=== PATIENT | male | born 1975 | race Caucasian/White ===

== ENCOUNTER 2018-02-16 03:10 | Emergency (ER) | payer MEDICARE, OTHER, MEDICAID ==
[2018-02-16 03:21] VITALS: BP 137/109
--- NOTE | 2018-02-16 03:28 | ER Document Report ---
ED General - General Chief Complaint: Chest Pain Stated Complaint: CHEST PAIN Time Seen by Provider: 02/16/18 03:25 Notes: Patient is a 42-year-old male who is brought in by EMS for chest pain. He has previous history of [place]. Since patient got to the room and had his EKG he told the nurse that his EKG looks fine and that he was leaving. He immediately pulled out his IV. I ran into the room to see the patient and informed the patient that leaving would be a bad idea and that I would at least like to talk to him and evaluate him and do further workup to make sure he is not having NJ. Patient refuses any evaluation from me and refuses any workup. I informed the patient that an EKG alone does not rule out a heart attack and that he could still potentially be having a heart attack and that he needs further workup. I informed him that if he is having a heart attack then he will go home and likely . Patient says that he knows for sure he is not having a heart attack and that he wants to go home because he has an autistic son at home that he needs to care for. I informed patient that I cannot hold him against his will however I again strongly recommend that he stays as he could potentially be having a heart attack and could . I informed him that even though he is deciding to leave that he is more than welcome to come back to the ER anytime as we want what is best for him and want to treat him. Patient left immediately. Further history is not obtainable as the patient did not want to give any further history or allow a full examination. TRAVEL OUTSIDE OF THE [place] IN LAST 30 DAYS: No - Related Data Allergies/Adverse Reactions: No Known Drug Allergies Allergy (Verified 02/16/18 03:21) Past Medical History - Social History Smoking Status: Unknown if Ever Smoked Frequency of alcohol use: unknown Drug Abuse: Other - unknown Family History: Other - unknown Review of Systems - Review of Systems -: Yes ROS unobtainable due to patient's medical condition - Patient will not give review of systems. Physical Exam - Vital signs Vitals: Temp 97.8 F 02/16/18 03:13 - Notes Notes: Patient refused physical exam. Course - Re-evaluation Re-evalutation: 02/16/18 03:36 Patient is awake and alert and talking normally without slurring of speech. He is walking around the room with normal coordination. He is not showing signs of inebriation. There is nothing on my interaction with him that would suggest that he lacks capacity where I could hold him against his will. Patient AGAINST MEDICAL ADVICE despite the repeatedly requesting that he is stayed for continue workup. Dictation of this chart was performed using voice recognition software; therefore, there may be some unintended grammatical errors. - Vital Signs Vital signs: Temp Pulse Resp BP Pulse Ox 97.8 F 12 137/109 H 99 02/16/18 03:13 02/16/18 03:16 02/16/18 03:16 02/16/18 03:16 Discharge - Discharge Clinical Impression: Chest pain Qualifiers: Chest pain type: unspecified Qualified Code(s): R07.9 - Chest pain, unspecified Disposition: AGAINST MEDICAL ADVICE Additional Instructions: At this time there is no way to show that you are not having a heart attack being that you are refusing work up. There is no way to determine whether oryou will have a bad outcome within the next 24 hours and this is why we prefer you to stay. We respect your decision to leave and understand that you do have prior priorities. Even though you are leaving we are not upset or mad. We just want what is best for you and therefore we encourage you to come back anytime so we can treat you and do a complete workup. There is a chance that you could tonight if you are indeed having a heart attack that we cannot see without doing further workup. Referrals: LOCALMD,NO [Primary Care Provider] - Follow up as needed
--- NOTE | 2018-02-16 10:12 | EKG REPORT ---
SEVERITY:- ABNORMAL ECG - SINUS RHYTHM PROBABLE INFERIOR INFARCT, OLD CONSIDER ANTERIOR INFARCT : Confirmed by: Olga Dumont MD 16-Feb-2018 10:12:24
== END 2018-02-16 03:37 | disposition left against medical advice (07) ==
LOC: ER 03:10
DX: R07.9 Chest pain, unspecified (principal)
CPT/HCPCS: 93005; 93010; 99285

== ENCOUNTER 2019-02-22 20:41 | Emergency (ER) | payer MEDICARE, MEDICAID ==
[2019-02-22 21:25] LABS: APPEARANCE,URINE SLIGHTLY-CLOUDY; BILIRUBIN,URINE NEGATIVE (NEGATIVE); COLOR,URINE YELLOW; GLUCOSE, URINE NEGATIVE (NEGATIVE); KETONES,URINE TRACE mg/dL (NEGATIVE); LEUKOCYTE ESTERASE,URINE NEGATIVE (NEGATIVE); NITRITE,URINE NEGATIVE (NEGATIVE); PROTEIN,URINE 100 mg/dL (NEGATIVE); URINE SPECIFIC GRAVITY 1.023
[2019-02-22 21:43] LABS: URINE AMPHETAMINES SCREEN NEGATIVE; URINE BARBITURATES SCREEN NEGATIVE; URINE BENZODIAZEPINES SCREEN NEGATIVE; URINE COCAINE SCREEN NEGATIVE; URINE MARIJUANA (THC) SCREEN NEGATIVE; URINE METHADONE SCREEN NEGATIVE; URINE PHENCYCLIDINE SCREEN NEGATIVE
[2019-02-22 22:04] LABS: ABSOLUTE BASOPHILS # (AUTO) 0.1 10^3/uL (0.0-0.2); ABSOLUTE LYMPHOCYTES (AUTO) 0.4 10^3/uL (0.5-4.7); ABSOLUTE MONOCYTES (AUTO) 0.3 10^3/uL (0.1-1.4); ABSOLUTE NEUT (AUTO) 4.5 10^3/uL (1.7-8.2); EOSINOPHILS % (AUTO) 0.9 % (0-6); HEMATOCRIT 41.4 % (37.9-51.0); HEMOGLOBIN 14.3 g/dL (13.5-17.0); LYMPHOCYTES % (AUTO) 6.8 % (13-45); MEAN CORPUSCULAR HEMOGLOBIN 32.9 pg (27.0-33.4); MEAN CORPUSCULAR HGB CONC 34.6 g/dL (32.0-36.0); MEAN CORPUSCULAR VOLUME 95 fl (80-97); MONOCYTES % (AUTO) 6.4 % (3-13); RED BLOOD COUNT 4.36 10^6/uL (4.35-5.55); RED CELL DISTRIBUTION WIDTH 13.8 % (11.5-14.0); SEGMENTED NEUTROPHILS % (AUTO) 84.9 % (42-78); TOTAL CELLS COUNTED % (AUTO) 100 %; WHITE BLOOD COUNT 5.3 10^3/uL (4.0-10.5)
[2019-02-22 22:14] LABS: ALBUMIN 4.4 g/dL (3.5-5.0); ALCOHOL < 10 mg/dL (NONE DETECTED); ALKALINE PHOSPHATASE 101 U/L (38-126); ANION GAP 13 (5-19); ASPARTATE AMINO TRANSFERASE 121 U/L (17-59); BILIRUBIN,DIRECT 0.2 mg/dL (0.0-0.4); BLOOD UREA NITROGEN 6 mg/dL (7-20); CALCIUM 9.1 mg/dL (8.4-10.2); CARBON DIOXIDE 22 mmol/L (22-30); CHLORIDE 97 mmol/L (98-107); GLUCOSE 88 mg/dL (75-110); TOTAL PROTEIN 7.8 g/dL (6.3-8.2)
[2019-02-22 22:20] LABS: PLATELET COUNT 34 10^3/uL (150-450)
[2019-02-22] MEDS ORDERED: NORMAL SALINE 1000 ML 1,000 ML IV ONE (22:31)
--- NOTE | 2019-02-22 22:45 | RADIOLOGY REPORT (SQ) ---
EXAM DESCRIPTION: CT HEAD WITHOUT IV CONTRAST COMPLETED DATE/TME: 02/22/2019 20:59 CLINICAL HISTORY: 43 years, Male, Seizure COMPARISON: None. TECHNIQUE: 197 Images stored on PACS. All CT scanners at this facility use dose modulation, iterative reconstruction, and/or weight based dosing when appropriate to reduce radiation dose to as low as reasonably achievable (ALARA). [facility]: Dose Right [facility]: CareDose [facility]: Dose Right [facility]: Teradose 4D [facility]: [employer] LIMITATIONS: None. FINDINGS: The globes are intact. The paranasal sinuses and mastoid air cells are unremarkable. No displaced or depressed skull fracture. No intra or extra-axial hemorrhage. CT is limited for evaluation of acute infarct. No CT evidence for large or territorial acute infarct. No mass. No midline shift IMPRESSION: Negative exam TECHNICAL DOCUMENTATION: Quality ID # 436: Final reports with documentation of one or more dose reduction techniques (e.g., Automated exposure control, adjustment of the mA and/or kV according to patient size, use of iterative reconstruction technique) copyright 2011 [employer]- All Rights Reserved
--- NOTE | 2019-02-22 22:46 | ER Document Report ---
ED Seizure - General Chief Complaint: Seizure Stated Complaint: POSS SEIZURE Time Seen by Provider: 02/22/19 20:51 Primary Care Provider: SURENDRA ZENG MD [NO LOCAL MD] - Follow up as needed Notes: Patient is a 43-year-old male presents to the emergency department via EMS for potential seizure. Initial report obtained from nursing staff who spoke with EMS. States patient had 2 seizures this afternoon. States upon EMS arrival patient was postictal and presented to the emergency department. EMS is reporting no trauma or injury. States upon arrival to the emergency department patient was back to his mental baseline, ANGULO x4. When I discussed patient presentation with patient he voices he does not remember what happened. States he has had a total of 5 seizures in his life. States they have been over the last 2 years. States he has never seen a neurologist, does not have a primary care provider and does not take any medications. Voices for the last 2 days he has had URI type symptoms, is denying fever or headache. States, "just a little congestion." Denies CP, SOB, ABD pain, injury or pain anywhere. After initial orders placed, I was able to speak with patient's girlfriend Marcela Bright, she witnessed the events. States the initial seizure lasted for approximately 25 seconds, states there was approximately 1 minute that the patient was "out of it." States patient had another seizure lasting approximately 45 seconds directly after that 1 minute and that is when 911 was alerted. States patient was lying on the couch when the seizures happened. Girlfriend is denying any trauma. Girlfriend does state that the patient is a heavy alcohol user. States he has not had an alcoholic beverage in the last 24 hours. Girlfriend states patient has had multiple seizures while they have been together, states patient is "stubborn." States patient has never seen a primary care provider or come to the emergency department for the said seizures. - Related Data Allergies/Adverse Reactions: No Known Drug Allergies Allergy (Verified 02/16/18 03:21) Past Medical History - General Information source: Patient, Friend, Emergency Med Personnel - Social History Smoking Status: Current Every Day Smoker Frequency of alcohol use: Heavy Drug Abuse: None Family History: Other - unknown Patient has suicidal ideation: No Patient has homicidal ideation: No Neurological Medical History: Reports: Hx Seizures Renal/ Medical History: Denies: Hx Peritoneal Dialysis Psychiatric Medical History: Reports: Hx Bipolar Disorder Past Surgical History: Reports: Hx Cardiac Surgery Review of Systems - Review of Systems Constitutional: denies: Fever EENT: See HPI Cardiovascular: No symptoms reported Respiratory: No symptoms reported Gastrointestinal: No symptoms reported Genitourinary: No symptoms reported Male Genitourinary: No symptoms reported Musculoskeletal: No symptoms reported Skin: No symptoms reported Hematologic/Lymphatic: No symptoms reported Neurological/Psychological: See HPI Physical Exam - Vital signs Vitals: Temp Pulse Resp BP Pulse Ox 99 F 94 16 125/82 97 02/22/19 20:57 02/22/19 20:57 02/22/19 20:57 02/22/19 20:57 02/22/19 20:57 - Notes Notes: GENERAL: Alert, interacts well. No acute distress. HEAD: Normocephalic, atraumatic. EYES: Pupils equal, round, and reactive to light. Extraocular movements intact. ENT: Oral mucosa moist, tongue midline. NECK: Full range of motion. Supple. Trachea midline. LUNGS: Clear to auscultation bilaterally, no wheezes, rales, or rhonchi. No respiratory distress. HEART: Regular rate and rhythm. No murmur ABDOMEN: Soft, non-tender. Non-distended. Bowel sounds present in all 4 quadrants. EXTREMITIES: Moves all 4 extremities spontaneously. No edema, normal radial and dorsalis pedis pulses bilaterally. No cyanosis. 5/5 strength noted all 4 extremities. BACK: no cervical, thoracic, lumbar midline tenderness. No saddle anesthesia, normal distal neurovascular exam. NEUROLOGICAL: Alert and oriented x3. Normal speech. cranial nerves II through XII grossly intact. PSYCH: Normal affect, normal mood. SKIN: Warm, dry, normal turgor. No rashes or lesions noted. Course - Re-evaluation Re-evalutation: EKG shows sinus rhythm rate of 72, QTc 486, no ST segment elevations or depressions noted. 02/23/19 00:03 As I am typing up the pts discharge instructions nurse brings my attention that patient attempted to use the bathroom. Patient fell in the hallway and was found to be having a tonic-clonic seizure. Upon my arrival to the patient patient continues with tonic-clonic seizure. 2 mg of IV Ativan were administered by nursing staff. Patient stopped seizing shortly after that. Patient did sustain an injury to the back of his head, obvious blood on the floor. Patient was placed in a c-collar and in full spinal board immobilization. Alina MATHEWS was the only one who witnessed the event, stated she saw the pt. walking down the hallway and he looked to be on his phone, then she saw him fall backwards and once he was on the floor he was seizing. Attempted to speak with security to view footage of the event, they stated they do not have a camera pointing down that hallway. Pt. sent to CT for head and C-spine imaging. Pt. is back to baseline shortly after returning from CT. CT imagining negative, pt. taken out of C-collar. Laceration repaired, see procedure note. Josue given in the ED, will send home with same. Pts mother in the room stating she will make sure the pt. follows up with Neurology. Pt. continues to be CAOx4 and now stable for d/c. Close discussion with pt. about not bathing alone and not driving until cleared by Neurology. - Vital Signs Vital signs: Temp Pulse Resp BP Pulse Ox 98.4 F 81 13 140/101 H 99 02/23/19 00:37 02/23/19 00:00 02/23/19 02:01 02/23/19 02:01 02/23/19 02:01 - Laboratory Result Diagrams: 02/22/19 21:49 02/22/19 21:49 Laboratory results interpreted by me: 02/22/19 02/22/19 02/22/19 21:06 21:49 21:49 Plt Count 34 L Lymph % (Auto) 6.8 L Absolute Lymphs (auto) 0.4 L Seg Neutrophils % 84.9 H Sodium 132.3 L Chloride 97 L BUN 6 L AST 121 H Urine Protein 100 H Urine Ketones TRACE H Urine Urobilinogen 4.0 H Procedures - Laceration/Wound Repair scalp Wound length (cm): 7 Wound's Depth, Shape: Stellate Laceration pre-procedure: Sterile PPE donned, Betadine prep applied, Sterile drapes applied, Shur-Clens applied Anesthetic type: 1% Lidocaine w/epi Volume Anesthetic (mLs): 5 Wound explored: Clean Irrigated w/ Saline (mLs): 500 Wound Debrided: Minimal Wound Repaired With: [place] - 7 Post-procedure wound care: Sterile dressing applied Post-procedure NV exam normal: Yes Complications: No Discharge - Discharge Clinical Impression: Seizure Scalp laceration Qualifiers: Encounter type: initial encounter Qualified Code(s): S01.01XA - Laceration without foreign body of scalp, initial encounter Condition: Stable Disposition: HOME, SELF-CARE Instructions: Laceration Care ([facility]), Seizure, Known Epileptic ([facility]), Soap Cleansing ([facility]), Tetanus Immunization Given ([facility]) Additional Instructions: As we discussed you have been seen and treated in the emergency department for a seizure. It is very important that you follow-up with neurology, phone numbers will be provided in this packet. Please also make sure you follow-up with your primary care doctor in the next 12 to 24 hours. You have also received suzanne on her scalp for laceration. They need to be removed in the next 5 to 7 days. Please keep the area clean and dry. Should you see any signs of infection like, warmth, discharge, fevers please medially return to the emergency room. Please return to the emergency room for any other concerns. You should not drive until you are cleared by Neurology. You should also not take baths or swim alone as you my have a seizure and drowned. Prescriptions: Levetiracetam [Keppra 500 mg Tablet] 500 mg PO Q12 #60 tablet Referrals: SURENDRA ZENG MD [NO LOCAL MD] - Follow up as needed
--- NOTE | 2019-02-22 23:17 | EKG REPORT ---
SEVERITY:- ABNORMAL ECG - SINUS RHYTHM INFERIOR INFARCT, OLD BORDERLINE PROLONGED QT INTERVAL : Confirmed by: Nguyen Verdin 22-Feb-2019 23:17:19
[2019-02-23] MEDS ORDERED: LORAZEPAM INJ 2 MG/1 ML VIAL IV ONE (00:01)
[2019-02-23] MEDS ORDERED: LEVETIRACETAM 1000 MG/NACL-ISO 1,000 MG/100 ML RTUPB IV ONE (00:03)
--- NOTE | 2019-02-23 00:43 | RADIOLOGY REPORT (SQ) ---
EXAM DESCRIPTION: CT CERVICAL SPINE WITHOUT IV CONTRAST COMPLETED DATE/TME: 02/23/2019 00:00 CLINICAL HISTORY: 43 years, Male, fall FROM STANDING IN ER HALLWAY COMPARISON: None. TECHNIQUE: 440 Images stored on PACS. All CT scanners at this facility use dose modulation, iterative reconstruction, and/or weight based dosing when appropriate to reduce radiation dose to as low as reasonably achievable (ALARA). [facility]: Dose Right [facility]: CareDose [facility]: Dose Right [facility]: Teradose 4D [facility]: [employer] LIMITATIONS: None. FINDINGS: Vertebral body height and alignment is preserved. Negative for fracture or subluxation. The prevertebral soft tissues are normal. Minor degenerative changes at multiple levels in the cervical spine with ossific spurring, facet arthropathy and uncovertebral joint hypertrophy. IMPRESSION: Minor multilevel degenerative change TECHNICAL DOCUMENTATION: Quality ID # 436: Final reports with documentation of one or more dose reduction techniques (e.g., Automated exposure control, adjustment of the mA and/or kV according to patient size, use of iterative reconstruction technique) copyright 2010 [employer]- All Rights Reserved
--- NOTE | 2019-02-23 00:46 | RADIOLOGY REPORT (SQ) ---
EXAM DESCRIPTION: RadLex: CT HEAD WITHOUT IV CONTRAST 02/23/2019 at 0011 CLINICAL HISTORY: 43 years Male; fall FROM STANDING IN ER HALLWAY TECHNIQUE: Noncontrast CT head. All CT scans at this facility use dose modulation, iterative reconstruction, and/or weight based dosing when appropriate to reduce radiation dose to as low as reasonably achievable. COMPARISON: 02/22/2019 CT FINDINGS: [place] matter, white matter, ventricles, and cisterns are within normal limits. No acute hemorrhage or mass effect. Visualized portions of paranasal sinuses and mastoids are clear. Right parieto-occipital scalp injury is noted, with a subgaleal hematoma 7 mm thick. No acute calvarial fracture. IMPRESSION: 1. No acute intracranial findings. 2. Posterior scalp injury, new since earlier this evening. No calvarial fracture.
[2019-02-23] MEDS ORDERED: LIDOCAINE 0.5%/EPINEPHRINE INJ 50 ML VIAL INJ ONE (01:26)
[2019-02-23] MEDS ORDERED: DIPH/PERTUSS(ACELL)/TETANUS VAC/PF 0.5 ML SYR (>=10YO) IM ONE (03:33)
[2019-02-23 04:29] VITALS: BP 134/94
== END 2019-02-23 04:32 | disposition home or self-care (01) ==
LOC: ER 20:41
DX: R56.9 Unspecified convulsions (principal); S01.01XA Laceration without foreign body of scalp, initial encounter; W18.39XA Other fall on same level, initial encounter; Y93.89 Activity, other specified; Y92.238 Other place in hospital as the place of occurrence of the external cause; R09.89 Other specified symptoms and signs involving the circulatory and respiratory systems; F17.200 Nicotine dependence, unspecified, uncomplicated
CPT/HCPCS: 93005; 36415; 80307 ×2; 83735; 85025; 80053; 81001; 70450 ×2; 72125; 90715; 93010; 12002; J3490; J2060; J7030; J1953; 90471; 96361; 96374; 96375; 99284

== ENCOUNTER → 2019-03-21 | Outpatient (CLI) | payer MEDICARE, MEDICAID ==
--- NOTE | 2019-03-21 12:28 | RADIOLOGY REPORT (SQ) ---
EXAM DESCRIPTION: MRI HEAD COMBO COMPLETED DATE/TIME: 03/21/2019 11:21 am REASON FOR STUDY: R56.9 UNSPECIFIED CONVULSIONS R56.9 UNSPECIFIED CONVULSIONS COMPARISON: None. TECHNIQUE: Multiplanar imaging includes noncontrasted T1, T2, FLAIR, diffusion with ADC map and post gadolinium contrast T1 sequences. Images stored on PACS. CONTRAST TYPE AND DOSE: 10 mL Dotarem. RENAL FUNCTION: Not indicated. ACR Type II contrast agent associated with few, if any, unconfounded cases of NSF LIMITATIONS: None. FINDINGS: ANATOMY: No anomalies. Normal vascular flow voids. Pituitary fossa normal. CSF SPACES: Normal in size and contour. No hemorrhage. CEREBRUM: Sulci and gyri normal in size and contour. Normal white matter signal on FLAIR imaging. No evidence of hemorrhage, mass, or extraaxial fluid collection. No abnormal enhancement post contrast. POSTERIOR FOSSA: No signal alteration. No hemorrhage. No edema, masses, or mass effect. Internal chelsie tory canals, cerebellopontine angles, mastoids normal. No enhancing lesions. No abnormal enhancement post contrast. DIFFUSION IMAGING: Negative for acute or subacute infarction. ORBITS: No masses. Globes normal. PARANASAL SINUSES: No fluid levels. Mucosa normal. OTHER: No other significant finding. IMPRESSION: NORMAL MRI OF THE BRAIN WITHOUT AND WITH INTRAVENOUS GADOLINIUM CONTRAST. EVIDENCE OF ACUTE STROKE: NO. TECHNICAL DOCUMENTATION: JOB ID: [id number] [employer]- All Rights Reserved Reading location - IP/workstation name: [email or web address]
== END ==
LOC: RAD 10:20
PROVIDERS: ATTEND Specialist
DX: R56.9 Unspecified convulsions (principal)
CPT/HCPCS: 70553; A9576